=== PATIENT | male | born 1965 | race Two or more races ===

== ENCOUNTER 2019-04-01 18:05 | Emergency (ER) | payer OTHER ==
[~2019-04-01] VITALS: Ht 172.7 cm; Wt 77.3 kg
[2019-04-01] MEDS ORDERED: LIDOCAINE 1%/EPI 1:200,000/PF 10 ML VIAL INJ ONE (18:45)
[2019-04-01 20:04] VITALS: BP 131/77
== END 2019-04-01 20:22 | disposition home or self-care (01) ==
LOC: EMS 18:09
DX: S01.01XA Laceration without foreign body of scalp, initial encounter (principal); V49.88XA Car occupant (driver) (passenger) injured in other specified transport accidents, initial encounter; W22.19XA Striking against or struck by other automobile airbag, initial encounter; Y93.89 Activity, other specified; Y92.488 Other paved roadways as the place of occurrence of the external cause; Y99.8 Other external cause status
CPT/HCPCS: 12002; 99283; J3490

== ENCOUNTER 2019-04-03 14:44 | Emergency (ER) | payer OTHER ==
[~2019-04-03] VITALS: Ht 180.3 cm; Wt 77.3 kg
[2019-04-03 16:40] VITALS: BP 127/84
== END 2019-04-03 17:00 | disposition home or self-care (01) ==
LOC: EMS 14:46
DX: S01.01XD Laceration without foreign body of scalp, subsequent encounter (principal); R03.0 Elevated blood-pressure reading, without diagnosis of hypertension; V49.9XXD Car occupant (driver) (passenger) injured in unspecified traffic accident, subsequent encounter

== ENCOUNTER 2019-04-10 19:16 | Emergency (ER) | payer OTHER ==
[~2019-04-10] VITALS: Ht 172.7 cm; Wt 77.3 kg
[2019-04-10] MEDS ORDERED: BACITRACIN 0.9 GM PACKET OINTMENT TP ONE (22:15)
[2019-04-10 22:18] VITALS: BP 156/105
== END 2019-04-10 22:31 | disposition home or self-care (01) ==
LOC: EMS 19:19
DX: S01.91XD Laceration without foreign body of unspecified part of head, subsequent encounter (principal); X58.XXXD Exposure to other specified factors, subsequent encounter